=== PATIENT | female | born 1990 | race Caucasian/White ===

== ENCOUNTER 2017-06-19 12:20 | Inpatient (IN) | payer OTHER ==
[~2017-06-19] VITALS: Ht 161.3 cm; Wt 102.5 kg
[2017-06-19] MEDS ORDERED: OXYTOCIN/NORMAL SALINE 1,000 ML IV SCH (12:37)
[2017-06-19] MEDS ORDERED: NALBUPHINE HCL 10 MG/ML AMP IVP PRN (12:45)
[2017-06-19] MEDS ORDERED: TERBUTALINE SULFATE 1 MG/ML VIAL SUBCUT ONE (12:45)
[2017-06-19 13:33] LABS: BASOPHILS # (AUTO) 0.2 K/uL (0.0-0.2); EOSINOPHILS % (AUTO) 0.1 % (0.0-4.0); HEMOGLOBIN 14.1 g/dL (12.0-16.0); LYMPHOCYTES # (AUTO) 2.1 K/uL (1.0-5.5); LYMPHOCYTES % (AUTO) 19.2 % (20.5-51.5); MEAN CORPUSCULAR HEMOGLOBIN 31 pg (27-31); MEAN CORPUSCULAR HGB CONC 34 % (32-36); MEAN CORPUSCULAR VOLUME 92 fL (79.0-98.0); MONOCYTES # (AUTO) 0.5 K/uL (0.0-1.0); MONOCYTES % (AUTO) 4.8 % (1.7-9.3); NEUTROPHILS # (AUTO) 8.2 K/uL (1.8-7.7); NEUTROPHILS % (AUTO) 73.9 % (40.0-70.0); PLATELET COUNT (AUTO) 313 K/uL (130-430); RED BLOOD CELL COUNT(AUTO) 4.56 MIL/uL (4.2-6.2); RED CELL DISTRIBUTION WIDTH 15.2 % (9.0-15.0)
[2017-06-19 13:44] VITALS: BP_SYST 141
[2017-06-19] MEDS: LR 1,000 ML IV SCH ×2 (14:10→21:10)
[2017-06-20] MEDS: LR 1,000 ML IV SCH (05:00)
[2017-06-20] MEDS ORDERED: FENT2mCg/mL-ROPIVA0.2%/NS EPID 150 ML EP ONE ×2 (05:32)
[2017-06-20] MEDS ORDERED: LR 1,000 ML IV.SOLN IV ONE (09:29)
[2017-06-20] MEDS ORDERED: MORPHINE SULFATE 10MG/10ML PF AMP EP ONE (09:29)
[2017-06-20] MEDS ORDERED: LIDOCAINE PF 2%, 200 MG/10 ML AMPUL.LUER (EPIDURAL) INJ ONE (09:29)
[2017-06-20] MEDS ORDERED: NS IRRIG SOLN 1000 ML IR ONE (09:29)
[2017-06-20 17:10] VITALS: BP_SYST 108
[2017-06-20] MEDS ORDERED: CITRIC ACID/SODIUM CITRATE 30 ML UDC PO ONE (17:30)
[2017-06-20] MEDS ORDERED: CEFAZOLIN 2 GM IVPB PREMIX 50 ML IV ONE (17:30)
[2017-06-20] MEDS ORDERED: LR 1,000 ML IV SCH ×2 (18:02→19:22)
[2017-06-20] MEDS ORDERED: ePHEDrine sulfate 50 MG/ML VIAL IVP PRN (18:15)
[2017-06-20] MEDS ORDERED: NALBUPHINE HCL 10 MG/ML AMP IVP PRN (18:15)
[2017-06-20] MEDS ORDERED: MEPERIDINE HCL/PF 25 MG/ML DISP.SYRIN IVP PRN ×2 (18:15)
[2017-06-20] MEDS ORDERED: MORPHINE SULFATE 10MG/10ML PF AMP EP SCH (18:15)
[2017-06-20] MEDS ORDERED: KETOROLAC TROMETHAMINE 30 MG VIAL IVP PRN ×2 (18:15)
[2017-06-20] MEDS ORDERED: HYDROmorphone 1 MG INJ. 1 MG/ML AMPUL IVP PRN ×2 (18:15)
[2017-06-20] MEDS ORDERED: ONDANSETRON HCL 4 MG/2 ML VIAL IVP PRN ×2 (18:15)
[2017-06-20] MEDS ORDERED: HYDROmorphone 2 MG/ML VIAL IVP PRN ×2 (18:15)
[2017-06-20] MEDS ORDERED: NALOXONE HCL 0.4 MG/ML AMP (NARCAN) IVP PRN (18:15)
[2017-06-20] MEDS ORDERED: DIPHENHYDRAMINE INJ 50 MG/ML VIAL IVP PRN (18:15)
[2017-06-20] MEDS ORDERED: OXYTOCIN/NORMAL SALINE 1,000 ML IV ONE (19:22)
[2017-06-20] MEDS ORDERED: ACETAMINOPHEN 325 MG TABLET PO PRN (19:30)
[2017-06-20] MEDS ORDERED: SIMETHICONE 80 MG TAB.CHEW PO PRN (19:30)
[2017-06-20] MEDS ORDERED: SENNOSIDES/DOCUSATE SODIUM 1 TAB TABLET(SENOKOT-S) PO PRN (19:30)
[2017-06-20] MEDS ORDERED: OXYCODONE/ACETAMINOPHEN 5-325 TABLET PO PRN ×2 (19:30)
[2017-06-20] MEDS ORDERED: MEASLES,MUMPS&RUBELLA VACC/PF 12500 UNIT/0.5 ML VIAL SUBQ PRN (19:30)
[2017-06-20] MEDS ORDERED: BISACODYL 10 MG/SUPPOSITORY RC PRN (19:30)
[2017-06-20] MEDS ORDERED: LANOLIN 7 GM OINT. TP PRN (19:30)
[2017-06-20] MEDS ORDERED: ANUSOL 1 EA SUPP.RECT (PREPARATION H) RC PRN (19:30)
[2017-06-20] MEDS ORDERED: RHO(D) IMMUNE GLOBULIN/MALTOSE 1500 UNITS/1.3 ML (WINHRO) IM PRN (19:30)
[2017-06-20] MEDS ORDERED: MEPERIDINE HCL/PF 25 MG/ML DISP.SYRIN ONE (19:34)
[2017-06-20] MEDS ORDERED: TEMAZEPAM 15 MG CAPSULE PO PRN (21:00)
[2017-06-21 08:13] LABS: HEMATOCRIT 35.1 % (36-48); HEMOGLOBIN 11.8 g/dL (12.0-16.0); MEAN CORPUSCULAR HEMOGLOBIN 32 pg (27-31); MEAN CORPUSCULAR HGB CONC 34 % (32-36); MEAN CORPUSCULAR VOLUME 94 fL (79.0-98.0); PLATELET COUNT (AUTO) 244 K/uL (130-430); RED BLOOD CELL COUNT(AUTO) 3.76 MIL/uL (4.2-6.2); RED CELL DISTRIBUTION WIDTH 15.2 % (9.0-15.0); WHITE BLOOD COUNT (AUTO) 16.8 K/uL (4.8-10.8)
[2017-06-21] MEDS: IBUPROFEN 600 MG TABLET PO SCH ×3 (08:17→18:14)
[2017-06-21 09:34] LABS: ATYPICAL LYMPHOCYTES % 0 % (0-0); BAND % (MANUAL) 3 % (0-6); BASOPHILS % (MANUAL) 0 % (0-2); EOSINOPHILS % (MANUAL) 0 % (0-7); LYMPHOCYTES % (MANUAL) 6 % (20-46); MONOCYTES % (MANUAL) 2 % (0-11)
[2017-06-21] MEDS: DOCUSATE SODIUM 100 MG CAPSULE PO PRN (12:31)
[2017-06-21] MEDS ORDERED: ePHEDrine sulfate 50 MG/ML VIAL IV ONE (18:15)
[2017-06-22] MEDS: IBUPROFEN 600 MG TABLET PO SCH ×4 (01:10→18:54)
[2017-06-22] MEDS: DOCUSATE SODIUM 100 MG CAPSULE PO PRN (13:23)
[2017-06-23] MEDS: IBUPROFEN 600 MG TABLET PO SCH ×2 (00:33→06:38)
== END 2017-06-23 09:30 | disposition home or self-care (01) | DRG 765 ==
LOC: SPU 12:20
PROVIDERS: ADMIT Obstetrics & Gynecology; ATTEND Obstetrics & Gynecology
PROC: 3E0134Z Introduction of Serum, Toxoid and Vaccine into Subcutaneous Tissue, Percutaneous Approach (ICD-10-PCS; 2017-06-20)
PROC: 3E0R3CZ (ICD-10-PCS; 2017-06-20)
PROC: 00HU33Z Insertion of Infusion Device into Spinal Canal, Percutaneous Approach (ICD-10-PCS; 2017-06-20)
PROC: 10D00Z1 Extraction of Products of Conception, Low, Open Approach (ICD-10-PCS; principal; 2017-06-20 18:00)
DX: O62.1 Secondary uterine inertia (principal); O41.03X0 Oligohydramnios, third trimester, not applicable or unspecified; E28.2 Polycystic ovarian syndrome; O99.89 Other specified diseases and conditions complicating pregnancy, childbirth and the puerperium; E66.3 Overweight; Z68.39 Body mass index [BMI] 39.0-39.9, adult; Z37.0 Single live birth; Z3A.40 40 weeks gestation of pregnancy; Z23 Encounter for immunization
CPT/HCPCS: 36415; 81002-TC; 85007; 85025; 85027; 86592; 86886; 86900; 86901; 94760; J0690; J2001; J2175; J2274; J2590; J3010; J7120